=== PATIENT | female | born 1950 | race Caucasian/White ===

== ENCOUNTER 2017-07-15 05:29 | Day surgery (SDC) | payer MEDICARE, BC ==
[2017-07-14 09:56] VITALS: BMI 32.2
--- NOTE | 2017-07-15 05:51 | HP ---
SHORT STAY HISTORY AND PHYSICAL DATE OF ADMISSION: 07/15/2017 HISTORY OF PRESENT ILLNESS: This is a 67-year-old female with history of chronic acid reflux for many years. The patient has been controlling her symptoms with diet and eating healthy. The patient still has some breakthrough symptoms off and on. The patient's symptoms are chronic in nature and has had symptoms for many years. The patient gives history of dysphagia off and on to solid food. This happens frequently. When she has the food stuck in the esophagus, she usually drinks water to make it go down. The patient has had previous esophageal dilatation in the past. The patient has history of colon polyp and the last one was more than 5 years ago. The patient comes for an EGD because of dysphagia and a colonoscopy because of colon polyp history. ALLERGIES: None. SOCIAL HISTORY: The patient does not smoke or drink alcohol. MEDICAL ILLNESS: 1. Chronic acid reflux. 2. Esophageal stricture, status post dilation. 3. Hypothyroidism. 4. Hypertension. 5. Hiatus hernia. PHYSICAL EXAMINATION: GENERAL: The patient is obese, appears comfortable. VITAL SIGNS: Pulse is 70, blood pressure 130/80. HEENT: Conjunctivae are clear. CARDIOVASCULAR SYSTEM: First and second heart sounds normal. LUNGS: Clear to auscultation. ABDOMEN: Soft to palpate. No organomegaly. No tenderness. No masses. ADMITTING DIAGNOSES: 1. Chronic acid reflux, dysphagia. 2. Colon polyp. PLAN: EGD and colonoscopy. MTDD
--- NOTE | 2017-07-15 10:22 | OP ---
DATE OF PROCEDURE: 07/15/2017 SURGEON: Oskar Gutierrez M.D. OPERATIVE PROCEDURE: Colonoscopy with polypectomy. PREOPERATIVE DIAGNOSIS: Colon polyp. POSTOPERATIVE DIAGNOSES: 1. Sessile polyp in transverse colon, status post polypectomy. 2. Scattered diverticular disease from sigmoid colon to transverse colon. 3. Hemorrhoids. OPERATIVE PROCEDURE IN DETAIL: The patient was placed on her left lateral position and was given sed ation by Anesthesia Department. A rectal exam was done before the scope was advanced into the rectum . No lesions were felt on rectal exam. A Pentax video colonoscope was introduced into the rectum an d advanced to the cecum. The prep was very good. The mucosa appeared normal. The appendiceal orifi ce, ileocecal valve, and cecum, no pathology seen. The ascending colon, hepatic flexure, no patholog y seen. The patient had scattered diverticular disease from the transverse colon all the way to the sigmoid colon. A sessile polyp over the distal transverse colon area removed with snare cautery with good hemostasis. Rectum showed hemorrhoids.
--- NOTE | 2017-07-15 10:35 | OP ---
DATE OF PROCEDURE: 07/15/2017 SURGEON: Oskar Gutierrez M.D. OPERATIVE PROCEDURE: Esophagogastroduodenoscopy with biopsy. PREOPERATIVE DIAGNOSES: Chronic acid reflux, dysphagia. POSTOPERATIVE DIAGNOSES: 1. Moderate size hiatus hernia. 2. Gastric ulcer over the proximal stomach. 3. Deep and large ulcerations over the esophagus. The ulcer was seen up to around 28 cm from oral incisor PROCEDURE IN DETAIL: The patient was placed on her left lateral position and was given sedation by the Anesthesia Department. A Pentax video gastroscope under direct vision was passed down the oropharynx, past the gastroesophageal junction, into the stomach and subsequently into the descending duodenum. The duodenal bulb and descending duodenum, the gastric antrum, incisura angularis, no pathology seen. The retroflexion failed to show any fundus or cardia. Over the gastric body the patient noted to have ulceration. This was biopsied. The patient had a moderate size hiatus hernia. The patient had a markedly edematous polypoid appearing esophageal mucosa with ulcerations. There were 3 ulcerations seen. All of the ulcers appear chronic and deep and quite large. Biopsies were obtained from the area. DISCHARGE PLANNING: This is a 67-year-old female who came in for an EGD and colonoscopy. The EGD showed a moderate size hiatus hernia, gastric ulcer and 3 large esophageal ulcerations. The colonoscopy showed a sessile polyp. She underwent polypectomy. DISCHARGE RECOMMENDATIONS: 1. We will start the patient on Prilosec 40 once a day. 2. Await the biopsies from the esophagus. 3. Repeat EGD in 6-8 weeks. MTDD
[2017-07-15] MEDS ORDERED: Lidocaine 1% PF 5 ML VIAL ONE (14:07)
[2017-07-15] MEDS ORDERED: Propofol 200 MG/20 ML VIAL ONE (14:07)
== END 2017-07-15 09:37 | disposition home or self-care (01) ==
LOC: SDC 05:29
PROVIDERS: ATTEND Internal Medicine Gastroenterology
PROC: 0DB58ZX Excision of Esophagus, Via Natural or Artificial Opening Endoscopic, Diagnostic (ICD-10-PCS; principal; 2017-07-15)
PROC: 0DBL8ZX Excision of Transverse Colon, Via Natural or Artificial Opening Endoscopic, Diagnostic (ICD-10-PCS; 2017-07-15)
DX: Z12.11 Encounter for screening for malignant neoplasm of colon (principal); K21.9 Gastro-esophageal reflux disease without esophagitis; R13.10 Dysphagia, unspecified; K29.50 Unspecified chronic gastritis without bleeding; K22.70 Barrett's esophagus without dysplasia; K63.5 Polyp of colon; K44.9 Diaphragmatic hernia without obstruction or gangrene; K25.9 Gastric ulcer, unspecified as acute or chronic, without hemorrhage or perforation; K64.9 Unspecified hemorrhoids; K57.30 Diverticulosis of large intestine without perforation or abscess without bleeding; E03.9 Hypothyroidism, unspecified; I10 Essential (primary) hypertension; Z79.899 Other long term (current) drug therapy; Z98.51 Tubal ligation status; Z90.49 Acquired absence of other specified parts of digestive tract; Z98.890 Other specified postprocedural states; Z87.19 Personal history of other diseases of the digestive system
CPT/HCPCS: 88305; 88312; 88313; J2001; J2704

== ENCOUNTER 2017-08-13 09:46 | Outpatient (CLI) | payer MEDICARE, BC | END 2017-08-13 09:47 | disposition home or self-care (01) | LOC: BICMAMMO 09:46 | PROVIDERS: ATTEND Nurse Practitioner Family | DX: Z08 Encounter for follow-up examination after completed treatment for malignant neoplasm (principal); Z85.3 Personal history of malignant neoplasm of breast | CPT/HCPCS: G0204; G0279; 77066 ==

== ENCOUNTER 2017-09-09 06:03 | Day surgery (SDC) | payer MEDICARE, BC ==
[2017-09-08 14:50] VITALS: BMI 32.5
--- NOTE | 2017-09-08 22:07 | HP ---
DATE OF ADMISSION: 09/09/2017 HISTORY OF PRESENT ILLNESS: This is a 67-year-old female with chronic acid reflux over the years. The patient had stopped taking medicine for a while and she is feeling better. The patient had EGD done 3 months ago and was found to have severe erosive esophagitis from the middle esophagus to the lower esophagus. 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 No definite dysplasia seen. The ulcerations are extensive and it was felt the patient needs repeat EGD and biopsy. The patient now comes for a second look EGD and biopsy. MEDICAL ILLNESSES: 1. Hypothyroidism. 2. Chronic seasonal allergies. 3. Chronic acid reflux. 4. Colon polyp. 5. Hiatus hernia. 6. Hypertension. 7. Past history of blood clots. 8. Past history of breast cancer. PHYSICAL EXAMINATION: VITAL SIGNS: Pulse is 70, blood pressure 130/70. HEENT: Conjunctivae clear. CARDIOVASCULAR AND LUNGS: Within normal limits. ABDOMEN: Soft to palpate. No organomegaly. No tenderness. No masses. EXTREMITIES: Reveal no edema. ADMITTING DIAGNOSES: A 67-year-old female with chronic acid reflux, Hector's mucosa. PLAN: EGD and biopsy. [facility]
--- NOTE | 2017-09-09 09:54 | OP ---
DATE OF PROCEDURE: 09/09/2017 SURGEON: Oskar Gutierrez M.D. OPERATIVE PROCEDURE: Esophagogastroduodenoscopy with biopsy. PREOPERATIVE DIAGNOSIS: A 67-year-old female with chronic acid reflux, severe erosive esophagitis wi th Hector's mucosa. The patient comes for a repeat esophagogastroduodenoscopy and biopsy. POSTOPERATIVE DIAGNOSES: 1. Large hiatus hernia. 2. Completely healed erosive esophagitis. The stomach appeared normal. PROCEDURE IN DETAIL: The patient was placed on her left lateral position and was given sedation by A nesthesia Department. A Pentax video gastroscope under direct vision was passed down the oropharynx, past the GE junction, into the stomach and subsequently into the descending duodenum. The patient h ad severe erosive esophagitis, multiple ulcerations on the last exam. At the present time, the mucos a appears back to normal. No inflammation, ulcerations are seen. Four quadrant biopsies of the abdo men obtained. The patient with a large hiatal hernia. Retroflexion failed to show any pathology in the fundus or cardia. The gastric body and gastric antrum, no pathology seen. The duodenal bulb, de scending duodenum, no pathology. The stomach was decompressed and the scope removed. DISCHARGE PLANNING: May resume her medicines as before. The stomach is completely healed. May swit ch over the medicine to maybe every other day, along with H2 blockers. Recommend repeat EGD and biop sy in 3 years.
== END 2017-09-09 10:05 | disposition home or self-care (01) ==
LOC: SDC 06:03
PROVIDERS: ATTEND Internal Medicine Gastroenterology
PROC: 0DB38ZX Excision of Lower Esophagus, Via Natural or Artificial Opening Endoscopic, Diagnostic (ICD-10-PCS; principal; 2017-09-09)
DX: K22.70 Barrett's esophagus without dysplasia (principal); K21.9 Gastro-esophageal reflux disease without esophagitis; K44.9 Diaphragmatic hernia without obstruction or gangrene; I10 Essential (primary) hypertension; E03.9 Hypothyroidism, unspecified; J45.909 Unspecified asthma, uncomplicated; G43.909 Migraine, unspecified, not intractable, without status migrainosus; Z85.3 Personal history of malignant neoplasm of breast; Z79.51 Long term (current) use of inhaled steroids; Z79.899 Other long term (current) drug therapy; Z98.890 Other specified postprocedural states
CPT/HCPCS: 88305; 88312; 88313

== ENCOUNTER 2018-08-18 10:02 | Outpatient (CLI) | payer MEDICARE, BC | END 2018-08-18 10:03 | disposition home or self-care (01) | LOC: BICMAMMO 10:02 | PROVIDERS: ATTEND Nurse Practitioner Family | DX: Z08 Encounter for follow-up examination after completed treatment for malignant neoplasm (principal); Z85.3 Personal history of malignant neoplasm of breast; Z80.3 Family history of malignant neoplasm of breast; N64.89 Other specified disorders of breast | CPT/HCPCS: 77066; G0279 ==

== ENCOUNTER 2018-11-01 07:28 | Emergency (ER) | payer MEDICARE, BC ==
[2018-11-01 08:23] LABS: #Basophils 0.1 thou/uL (0.0-0.2); #Eosinphils 0.1 thou/uL (0.0-0.7); #Lymphocytes 1.7 thou/uL (1.20-3.40); #Monocytes 0.7 thou/uL (0.11-0.59); #Neutrophils 2.5 thou/uL (1.40-6.50); %Eosinophils 1.8 % (0.0-10.0); %Monocytes 13.4 % (0.0-10.0); %Neutrophils 49.7 % (42.0-75.0); Hemoglobin 12.9 g/dL (12.0-16.0); Mean Corpuscular HGB CONC 33.5 g/dL (32.0-36.0); Mean Corpuscular Volume 98.4 fL (78.0-98.0); Mean Platelet Volume 6.7 fL (7.4-10.4); Platelet Count 205 thou/uL (130-400); RBC Distribution Width 11.4 % (11.5-14.5); Red Blood Cell (RBC) Count 3.91 mill/uL (4.20-5.40)
[2018-11-01 08:38] LABS: ALT (SGPT) 18 U/L (8-55); AST (SGOT) 21 U/L (5-34); Albumin 3.9 g/dL (3.4-4.8); Alkaline Phosphatase 66 U/L (40-150); Anion Gap 11 mmol/L (10-20); BUN (Urea Nitrogen) 12 mg/dL (9.8-20.1); Bilirubin, Total 0.4 mg/dL (0.2-1.2); Calc. Creatinine Clearance 0 mL/min (70-130); Calcium 10.1 mg/dL (7.8-10.44); Carbon Dioxide 30 mmol/L (23-31); Chloride 104 mmol/L (98-107); Estimated GFR-MDRD 61; Globulin 2.5 g/dL (2.4-3.5); Glucose 130 mg/dL (80-115); Protein, Total 6.4 g/dL (6.0-8.3); Sodium 141 mmol/L (136-145)
--- NOTE | 2018-11-01 08:52 | RAD ---
AP CHEST: Date: 11/01/18 HISTORY: Cough. FINDINGS: Lungs are clear. Heart and mediastinum unremarkable. Vasculature normal. IMPRESSION: No acute findings. POS: [facility]
== END 2018-11-01 09:15 | disposition home or self-care (01) ==
LOC: ERS 07:28
DX: M54.6 Pain in thoracic spine (principal); R05 Cough; I10 Essential (primary) hypertension; Z86.711 Personal history of pulmonary embolism; Z79.899 Other long term (current) drug therapy
CPT/HCPCS: 36415; 71045; 80053; 85025; 93005; 94760

== ENCOUNTER 2019-09-14 23:47 | Emergency (ER) | payer MEDICARE, BC ==
[2019-09-15 00:12] LABS: Bilirubin Negative (Negative); Blood, Urine Negative (Negative); Clarity Clear (Clear); Glucose, Urine (Dipstick) Normal (Negative); Leukocyte Negative Leu/uL (Negative); Nitrite Negative (Negative); Protein, Urine (Dipstick) Negative (Neg-Trace); Urobilinogen Normal mg/dL (Less than 2)
--- NOTE | 2019-09-15 08:00 | RAD ---
Frontal radiograph chest 2 views of abdomen: 09/15/2019 HISTORY: Constipation, pain FINDINGS: Frontal radiograph chest demonstrates no pneumothorax, pleural fluid, focal consolidation, or alveolar edema. Clips in the right upper quadrant suggest prior cholecystectomy. Upright imaging demonstrates no free intraperitoneal air or air-fluid levels. The bowel gas pattern i s nonobstructed. IMPRESSION: Nonobstructed bowel gas pattern. No evidence for free intraperitoneal air or acute cardio pulmonary disease.
== END 2019-09-15 02:08 | disposition home or self-care (01) ==
LOC: ERS 23:47
DX: K59.00 Constipation, unspecified (principal); I10 Essential (primary) hypertension; Z86.711 Personal history of pulmonary embolism
CPT/HCPCS: 74022; 81003; 99284

== ENCOUNTER 2019-09-18 05:41 | Emergency (ER) | payer MEDICARE, BC ==
--- NOTE | 2019-09-18 08:16 | CT ---
PRELIMINARY REPORT/[facility]/EMERGENCY AFTER HOURS PROCEDURE EXAM: CT Abdomen and Pelvis Without Intravenous Contrast CLINICAL HISTORY: FKala presents to the ED with c/o constipation. Pt reports her last BM was 09/09/2019. Pt reports she was seen by her PCP on 09/11 and was told to drink magnesium citrate. Pt reports she drank two bottles over two hours w/o relief. Pt reports she has also been taking Miralax. Pt reports she was seen here in the ED on nd had an XRay and rectal exam. Pt reports she was discharged and instructed to do an enema at home. Pt reports she attempted two fleet enemas at home w/o success. Pt reports mild a bdominal pain. TECHNIQUE: Axial computed tomography images of the abdomen and pelvis without intravenous contrast. CONTRAST: None. COMPARISON: None provided. FINDINGS: LUNG BASES: No basilar airspace consolidation or pleural effusion. LIVER: Unremarkable. GALLBLADDER AND BILE DUCTS: Cholecystectomy. PANCREAS: Unremarkable. SPLEEN: Unremarkable. ADRENAL GLANDS: Unremarkable. KIDNEYS, URETERS, AND BLADDER: Unremarkable. No hydronephrosis or nephrolithiasis. No ureteral or dipesh dder calculi. STOMACH AND BOWEL: Small hiatal hernia. No obstruction. No wall thickening. No CT evidence of colitis or acute diverticulitis. APPENDIX: No CT evidence for appendicitis. PERITONEUM: No free fluid. No free air. LYMPH NODES: No lymphadenopathy. REPRODUCTIVE: Unremarkable as visualized. VASCULATURE: No aortic aneurysm. Calcified plaque in the aorta. ABDOMINAL WALL AND SOFT TISSUES: Unremarkable. BONES: No fracture or suspicious osseous abnormality. IMPRESSION: No acute intra-abdominal or pelvic abnormality. Chart history indicates patient has attempted 2 enemas; stool burden is quite minimal. ELECTRONICALLY SIGNED BY: Tita Caldwell MD Sep 18, 2019 7:15:31 AM CDT This report is intended for review by the ordering physician only, in accordance of law. If you recei ve this report in error, please call [facility] at [phone]. FINAL REPORT CT abdomen and pelvis noncontrast 09/18/2019 performed on emergency basis at 0634 hours HISTORY: Abdominal pain. Flank pain. Constipation. FINDINGS: Agree with the preliminary report by Dr. Caldwell from [facility]. No CT evidence of ur inary tract obstruction or calcification. Lack of contrast limits evaluation for other abnormalities. Gallbladder surgically absent. Small hiat al hernia apparent. Code QA. Transcribed Date/Time: 09/18/2019 8:52 AM
== END 2019-09-18 07:46 | disposition home or self-care (01) ==
LOC: ERS 05:41
DX: R14.0 Abdominal distension (gaseous) (principal); I10 Essential (primary) hypertension; Z86.711 Personal history of pulmonary embolism
CPT/HCPCS: 74176

== ENCOUNTER 2021-03-22 08:09 | Outpatient (CLI) | payer MEDICARE, BC | END 2021-03-22 08:10 | disposition home or self-care (01) | LOC: NM 08:09 | PROVIDERS: ATTEND Physician Assistant Medical | DX: R11.10 Vomiting, unspecified (principal) | CPT/HCPCS: 78264; A9541 ==

== ENCOUNTER 2021-04-16 08:19 | Outpatient (CLI) | payer MEDICARE, BC | END 2021-04-16 08:20 | disposition home or self-care (01) | LOC: BICMAMMO 08:19 | PROVIDERS: ATTEND Family Medicine | DX: Z13.820 Encounter for screening for osteoporosis (principal); Z78.0 Asymptomatic menopausal state; M85.852 Other specified disorders of bone density and structure, left thigh; M85.851 Other specified disorders of bone density and structure, right thigh | CPT/HCPCS: 77080 ==

== ENCOUNTER 2023-04-05 10:29 | Emergency (ER) | payer MEDICARE, BC | END 2023-04-05 11:54 | disposition home or self-care (01) | LOC: ERS 10:29 | DX: S86.911A Strain of unspecified muscle(s) and tendon(s) at lower leg level, right leg, initial encounter (principal); K21.9 Gastro-esophageal reflux disease without esophagitis; I10 Essential (primary) hypertension; Z79.899 Other long term (current) drug therapy; X58.XXXA Exposure to other specified factors, initial encounter ==

== ENCOUNTER 2024-02-21 17:30 | Observation (INO) | payer BC, MEDICARE ==
[~2024-02-21 17:30] MED LIST: Iopamidol-370 76% 500 ML MDV (1 ML CHARGE) ONE
[2024-02-21 18:14] LABS: #Basophils 0.03 10x3/uL (0.0-0.2); %Basophils 0.5 % (0.0-1.0); %Eosinophils 1.2 % (0.0-10.0); %Lymphocytes 33.6 % (21.0-51.0); %Monocytes 10.7 % (0.0-10.0); %Neutrophils 53.8 % (42.0-75.0); Hematocrit 38.2 % (36.0-47.0); Hemoglobin 13.8 g/dL (12.0-16.0); Mean Corpuscular HGB CONC 36.1 g/dL (32.0-36.0); Mean Corpuscular Hemoglobin 34.4 pg (27.0-31.0); Mean Corpuscular Volume 95.3 fL (78.0-98.0); Mean Platelet Volume 9.5 fL (7.4-10.4); Platelet Count 193 10x3/uL (130-400); RBC Distribution Width 11.9 % (11.5-14.5); Red Blood Cell (RBC) Count 4.01 mill/uL (4.20-5.40)
[2024-02-21 18:24] LABS: Prothrombin Time 13.6 sec (12.0-14.7)
[2024-02-21 18:31] LABS: Troponin I 0.012 ng/mL (< 0.028)
[2024-02-21] MEDS ORDERED: Metoclopramide HCl 10 MG (2 mL) VIAL ONE (18:33)
[2024-02-21] MEDS ORDERED: Aspirin Chewable 81 MG TAB ONE (18:33)
[2024-02-21 18:34] LABS: ALT (SGPT) 19 U/L (8-55); AST (SGOT) 27 U/L (5-34); Albumin 3.9 g/dL (3.4-4.8); Alkaline Phosphatase 78 U/L (40-110); Anion Gap 14 mmol/L (10-20); BUN (Urea Nitrogen) 13 mg/dL (9.8-20.1); Bilirubin, Total 0.6 mg/dL (0.2-1.2); Calc. Creatinine Clearance 0 mL/min (70-130); Calcium 9.7 mg/dL (7.8-10.44); Carbon Dioxide 26 mmol/L (23-31); Chloride 104 mmol/L (98-107); Estimated GFR 79; Globulin 3.1 g/dL (2.4-3.5); Glucose 116 mg/dL (83-110); Sodium 140 mmol/L (136-145)
[2024-02-21 19:35] LABS: Bacteria/HPF None Seen HPF (None Seen); Bilirubin Negative (Negative); Blood, Urine Negative (Negative); CAUTI Indications for Culture Alt mental st,lethar; Clarity Clear (Clear); Glucose, Urine (Dipstick) Normal (Negative); Ketone, Urine Negative (Negative); Leukocyte Negative Leu/uL (Negative); Nitrite Negative (Negative); Protein, Urine (Dipstick) Negative (Neg-Trace); RBC/HPF 0-3 HPF (0-3); Specific Gravity, Urine 1.024 (1.002-1.036); Squamous Epithelial None Seen HPF (0-3); Urobilinogen Normal mg/dL (Less than 2); WBC/HPF 0-3 HPF (0-3); pH, Urine 7.5 (5.0-9.0)
[2024-02-21 19:47] LABS: Urine Culture Reflex No No
[2024-02-21] MEDS ORDERED: hydrALAZINE 20 MG/ML VIAL SLOW IVP PRN (21:40)
[2024-02-21 22:24] VITALS: BMI 28.8
[2024-02-22 04:04] LABS: #Basophils Less than 0.03 10x3/uL (0.0-0.2); %Basophils 0.4 % (0.0-1.0); %Eosinophils 2.7 % (0.0-10.0); %Lymphocytes 34.5 % (21.0-51.0); %Neutrophils 49.2 % (42.0-75.0); Hematocrit 36.5 % (36.0-47.0); Hemoglobin 12.8 g/dL (12.0-16.0); Mean Corpuscular HGB CONC 35.1 g/dL (32.0-36.0); Mean Corpuscular Hemoglobin 33.3 pg (27.0-31.0); Mean Corpuscular Volume 95.1 fL (78.0-98.0); Mean Platelet Volume 9.5 fL (7.4-10.4); Platelet Count 179 10x3/uL (130-400); RBC Distribution Width 12.2 % (11.5-14.5); Red Blood Cell (RBC) Count 3.84 mill/uL (4.20-5.40)
[2024-02-22 04:22] LABS: Anion Gap 12 mmol/L (10-20); BUN (Urea Nitrogen) 9 mg/dL (9.8-20.1); Calc. Creatinine Clearance 84 mL/min (70-130); Calcium 9.2 mg/dL (7.8-10.44); Carbon Dioxide 26 mmol/L (23-31); Cardiac Risk 3.9 (Less than 4.5); Chloride 106 mmol/L (98-107); Cholesterol 163 mg/dl (< 200 Desired); Estimated GFR 86; Glucose 120 mg/dL (83-110); HDL Cholesterol 42 mg/dL (>60 Neg Risk); LDL Cholesterol, Calculated 89 mg/dL; Potassium 3.7 mmol/L (3.5-5.1); Sodium 140 mmol/L (136-145); Triglycerides 159 mg/dL (Less than 150)
[2024-02-22] MEDS: Aspirin 81 mg Enteric Coated Tablet PO SCH (09:22)
[2024-02-22 09:34] VITALS: TEMP 97.6
[2024-02-22 13:05] VITALS: BP 130/82
[2024-02-22] MEDS ORDERED: Atorvastatin Calcium 40 MG TAB PO SCH (21:00)
== END 2024-02-22 17:25 | disposition home or self-care (01) ==
LOC: ERS 17:30 → 2SE 20:37
PROVIDERS: ADMIT Internal Medicine; ATTEND Family Medicine
DX: R29.818 Other symptoms and signs involving the nervous system (principal); R29.898 Other symptoms and signs involving the musculoskeletal system; R20.0 Anesthesia of skin; E03.9 Hypothyroidism, unspecified; R20.2 Paresthesia of skin; J30.9 Allergic rhinitis, unspecified; K21.9 Gastro-esophageal reflux disease without esophagitis; I10 Essential (primary) hypertension; Z98.890 Other specified postprocedural states; Z90.49 Acquired absence of other specified parts of digestive tract; Z98.51 Tubal ligation status; Z86.73 Personal history of transient ischemic attack (TIA), and cerebral infarction without residual deficits; Z79.899 Other long term (current) drug therapy
CPT/HCPCS: 70450; 70496; 70498; 70551; 71045; 72141; 80048; 80061; 81001; 82962; 83880; 84484; 85025; 85610; 85730; 93005; 96365; 96366; 99285; G0378 ×3; J2765; Q9967; 36415; 36416; 80053; 84443